=== PATIENT | female | born 1955 | race Caucasian/White ===

== ENCOUNTER 2017-12-20 09:25 | Day surgery (SDC) | END 2017-12-20 16:17 | disposition home or self-care (01) ==

== ENCOUNTER 2019-06-12 08:42 | Emergency (ER) | payer BC ==
[~2019-06-12] VITALS: Ht 167.6 cm; Wt 104.2 kg
[~2019-06-12 08:42] MED LIST: IBUP-1542 PO; OMEG-179 PO
[2019-06-12 08:44] VITALS: Ht 167.6 cm; Wt 104.2 kg
[2019-06-12] MEDS ORDERED: KETOROLAC 60 MG INJ IM STA (09:12)
[2019-06-12] MEDS ORDERED: ONDANSETRON (ODT) 4 MG TAB ODT STA (09:18)
[2019-06-12] MEDS ORDERED: HYDROCODONE/APAP (5/325) TAB PO ONE (09:30)
[2019-06-12] MEDS ORDERED: DEXAMETHASONE 10 MG/ML 1 ML INJ IM ONE (09:30)
[2019-06-12] MEDS ORDERED: HYDROmorphONE 2 MG/ML SYG IM STA (10:26)
[2019-06-12] MEDS ORDERED: CYCL10TA7 PO (11:28)
[2019-06-12] MEDS ORDERED: MED4DP PO (11:28)
[2019-06-12] MEDS ORDERED: NAPR-985 PO (11:28)
[2019-06-12] MEDS ORDERED: HYDR-4011 PO (11:28)
[2019-06-12 11:41] VITALS: BP 147/88; PULSE 86; RESP 19
--- NOTE | 2019-06-12 13:49 | ERD ---
ER Documentation Chief Complaint Chief Complaint RT SHOULDER PAIN RADIATING DOWN THE RT ARM SINCE YESTERDAY HPI 63-year-old female presenting with right shoulder pain radiating down her right arm. His pain is been intense since yesterday and started on its own. There is no traumatic injury. Patient denies any nausea or vomiting and is left-hand dominant. She is never had this pain before. She states the pain starts at her shoulder blade and radiates to her right hand. Denies any numbness or tingling. Has not taken medications for her symptoms. Denies medical problems. NKDA. Surgical history appendicitis and . Social history denies ROS All systems reviewed and are negative except as per history of present illness. Medications Home Meds Active Scripts Cyclobenzaprine Hcl* (Cyclobenzaprine Hcl*) 10 Mg Tablet, 10 MG PO TID, #15 TAB Prov:ENRIQUE WATSON PA-C 06/12/19 Methylprednisolone* (Medrol* DOSE PACK) 4 Mg/Dose-Pack Tab.ds.pk, 4 MG PO . DIRECTED, #1 PACKET Prov:ENRIQUE WATSON PA-C 06/12/19 Naproxen* (Naprosyn*) 500 Mg Tablet, 500 MG PO BID PRN for PAIN AND/OR INFLA MMATION, #30 TAB Prov:ENRIQUE WATSON PA-C 06/12/19 Hydrocodone/Acetaminophen (Amity 5-325 Tablet) 1 Each Tablet, 1 TAB PO Q6H PRN for PAIN, #7 TAB Prov:ENRIQUE WATSON PA-C 06/12/19 Reported Medications Alto-3S/Dha/Epa/Fish Oil (FISH OIL 1,200 MG SOFTGEL) 1 Each Capsule, 1 EACH PO, CAP 12/20/17 Ibuprofen* (Ibuprofen*) 600 Mg Tablet, 600 MG PO Q8, TAB 12/20/17 Allergies Allergies: Coded Allergies: shellfish derived (Verified Allergy, Severe, STOP BREATHING, 12/20/17) Uncoded Allergies: I. V CONTRAST DYE (Allergy, Severe, STOP BREATHING, 12/20/17) PMhx/Soc History of Surgery: Yes (APPENDECTOMY,C/S) Anesthesia Reaction: No Hx Neurological Disorder: No Hx Respiratory Disorders: Yes (DUANE WITH CPAP) Hx Cardiac Disorders: No Hx Psychiatric Problems: No Hx Miscellaneous Medical Probl: No Hx Alcohol Use: No Hx Substance Use: No Hx Tobacco Use: No Smoking Status: Never smoker FmHx Family History: No diabetes, No coronary disease, No other Physical Exam Vitals Vital Signs Date Temp Pulse Resp B/P (MAP) Pulse Ox O2 O2 Flow FiO2 Time Delivery Rate 06/12/19 86 19 147/88 100 11:41 (107) 06/12/19 97.3 75 20 156/77 95 08:44 (103) Physical Exam GENERAL: The patient is well-appearing, well-nourished, in no acute distress NECK: C-spine is soft and supple. There is no meningismus. There is no cervical lymphadenopathy. No JVD. No bruits. No goiter. CHEST: Clear to auscultation bilaterally. There are no rales, wheezes or rhonchi. HEART: Regular rate and rhythm. No murmurs, clicks, rubs or gallops. No S3 or S4. EXTREMITIES: To palpation over right bicep with no obvious deformity or erythema. Normal range of motion and strength 5 out of 5 to the right distal hand. Neurovascularly intact with cap refill less than 2 seconds. Compartments soft. NEUROLOGIC: Motor strength in all 4 extremities with 5 out of 5 strength. Sensation grossly intact. SKIN: There is no apparent rash or petechiae. The skin is warm and dry. Results 24 hrs Current Medications Medications Dose Sig/Lucero Start Time Status Last (Trade) Ordered Route PRN Stop Time Admin Dose Reason Admin 10 mg ONCE ONCE 06/12/19 DC Dexamethasone IM 09:30 (Decadron) 06/12/19 09:30 Ketorolac 60 mg ONCE STAT 06/12/19 DC Tromethamine IM 09:12 (Toradol) 06/12/19 09:19 1 tab ONCE ONCE 06/12/19 DC 06/12/19 Acetaminophen PO 09:30 09:27 / 06/12/19 09:31 Hydrocodone Bitart (Amity (5/325)) Ondansetron 4 mg ONCE STAT 06/12/19 DC 06/12/19 HCl (Zofran ODT 09:18 09:28 Odt) 06/12/19 09:20 2 mg ONCE STAT 06/12/19 DC 06/12/19 Hydromorphone IM 10:26 10:38 HCl 06/12/19 10:27 (Dilaudid) Procedures/MDM DIAGNOSTIC IMAGING REPORT Patient: BRIGIDA ELLIS : 1955 Age: 63 Sex: F MR #: [id number] DOS: 06/12/19 0913 Ordering MD: MARLENE WATSON PA-C Location: [facility] Room/Bed: PROCEDURE: US upper extremity Venous. CLINICAL INDICATION: Right upper extremity swelling. TECHNIQUE: Multiple sonographic images of the right upper extremity venous system was obtained utilizing wylie scale, color-flow, compressive sonography and doppler imaging with augmentation. COMPARISON: None FINDINGS: There is normal compressibility, phasicity and flow demonstrated within the right internal jugular vein, subclavian vein, axillary vein and brachial vein. Normal compressibility of the superficial basilic and cephalic veins. IMPRESSION: No sonographic evidence for right upper extremity deep venous thrombosis. ER Course: Initially only half of a Amity was given to patient because she de clined a full tablet. Patient was still experiencing significant pain so Dr. Neville evaluated patient for possible other complications. Patient agreed to Dilaudid to help with pain control patient was given 2 mg IM Dilaudid. I offered blood work to patient as well as further imaging however she declined. She states that she would rather go home with pain medication. EKG: Rate/Rhythm: 72 bpm Normal Sinus Rhythm QRS, ST, T-waves: No changes consistent w/ acute ischemia Impression: No evidence of ischemia or arrhythmia MDM: 63-year-old male presenting with arm pain. Patient's pain was alleviated after Dilaudid. Patient is improved and nontoxic-appearing. Patient likely has muscular skeletal strain versus spasm and I have low suspicion for fracture, infection, vascular insufficiency. Patient is discharged with strict ER precautions and told to follow-up with primary care within 1 to 2 days for close evaluation. Patient is told symptoms change or worsen to return immediately to the ER. All questions answered at discharge MDM: 53-year-old female presenting with right shoulder pain. Patient has palpable pain on examination and has normal range of motion with neurovascular exam intact. I have low suspicion for infectious process. Vitals are stable and exam is non-concerning. I have low suspicion for acute fracture dislocation. Patient's right upper quadrant ultrasound is within normal limits I do not feel that further imaging is indicated. Patient declined blood work in the emergency room. Departure Diagnosis: Primary Impression: Shoulder pain Condition: Stable Patient Instructions: Shoulder Pain (Uncertain Cause) Referrals: [facility] YOU HAVE RECEIVED A MEDICAL SCREENING EXAM AND THE RESULTS INDICATE THAT YOU DO NOT HAVE A CONDITION THAT REQUIRES URGENT TREATMENT IN THE EMERGENCY DEPARTMENT. FURTHER EVALUATION AND TREATMENT OF YOUR CONDITION CAN WAIT UNTIL YOU ARE SEEN IN YOUR DOCTORS OFFICE WITHIN THE NEXT 1-2 DAYS. IT IS YOUR RESPONSIBILITY TO MAKE AN APPOINTMENT FOR FOLOW-UP CARE. IF YOU HAVE A PRIMARY DOCTOR --you should call your primary doctor and schedule an appointment IF YOU DO NOT HAVE A PRIMARY DOCTOR YOU CAN CALL OUR PHYSICIAN REFERRAL HOTLINE AT IF YOU CAN NOT AFFORD TO SEE A PHYSICIAN YOU CAN CHOSE FROM THE FOLLOWING [facility] [address] [facility]. [facility] [address] [facility] [facility] [address] [facility] [address] [facility] [facility] [address] [facility]. [facility] [address] Additional Instructions: FOLLOW UP WITH YOUR PRIMARY CARE PHYSICIAN TOMORROW.Return to this facility if you are not improving as expected. ENRIQUE WATSON PA-C Jun 12, 2019 13:36
== END 2019-06-12 11:42 | disposition home or self-care (01) ==
LOC: FTE 08:42
DX: M25.511 Pain in right shoulder (principal)
CPT/HCPCS: 93971; J1170; 93005; 96372; J1100; J1885